=== PATIENT | female | born 1960 | race Caucasian/White ===

== ENCOUNTER 2018-07-06 13:07 | Emergency (ER) | payer OTHER, MEDICAID ==
[2018-07-06] MEDS: IBUPROFEN 600 MG TAB PO (15:30)
== END 2018-07-06 17:07 | disposition home or self-care (01) ==
LOC: FTE 13:07
DX: S93.402A Sprain of unspecified ligament of left ankle, initial encounter (principal); X50.1XXA Overexertion from prolonged static or awkward postures, initial encounter; Y92.488 Other paved roadways as the place of occurrence of the external cause
CPT/HCPCS: 73562; 73590; 73610; 99283-25